=== PATIENT | male | born 1955 | race Caucasian/White ===

== ENCOUNTER → 2021-06-24 01:49 | Outpatient (CLI) | payer OTHER, SELFPAY ==
[2021-06-25 02:21] LABS: SARS-CoV-2 RNA PCR Negative
== END ==
PROVIDERS: PCP Internal Medicine; Visit Provider Internal Medicine
DX: R68.89 Other general symptoms and signs (principal); Z20.822 Contact with and (suspected) exposure to COVID-19
CPT/HCPCS: C9803; U0003; U0005

== ENCOUNTER → 2021-07-08 02:22 | Outpatient (CLI) | payer OTHER, SELFPAY ==
[2021-07-08 21:18] LABS: SARS-CoV-2 RNA PCR Negative
== END ==
PROVIDERS: PCP Internal Medicine; Visit Provider Internal Medicine
DX: R09.89 Other specified symptoms and signs involving the circulatory and respiratory systems (principal); Z20.822 Contact with and (suspected) exposure to COVID-19
CPT/HCPCS: C9803; U0003; U0005

== ENCOUNTER → 2021-07-20 02:00 | Outpatient (CLI) | payer OTHER, SELFPAY ==
[2021-07-20 19:02] LABS: SARS-CoV-2 RNA PCR Positive
== END ==
PROVIDERS: PCP Internal Medicine; Visit Provider Internal Medicine
DX: U07.1 COVID-19 (principal); R68.89 Other general symptoms and signs
CPT/HCPCS: C9803; U0003; U0005

== ENCOUNTER 2023-09-05 10:31 | Outpatient (CLI) | payer BC, SELFPAY ==
[2023-09-05 19:48] LABS: Alanine Aminotransferase 15 U/L (6-50); Albumin Level 4.2 g/dL (3.5-5.1); Alkaline Phosphatase 73 U/L (38-126); Anion Gap 6 mmol/L (8-16); Aspartate Amino Transferase 57 U/L (17-59); Bilirubin,Total 0.7 mg/dL (0.2-1.3); Blood Urea Nitrogen 25 mg/dL (9-20); Calcium 9.1 mg/dL (8.4-10.2); Carbon Dioxide 27 mmol/L (22-30); Chloride 103 mmol/L (98-107); Cholesterol 133 mg/dL (0-200); Estimated Glomerular Filt Rate > 60; Glucose 187 mg/dL (65-110); HDL Direct 39 mg/dL; Sodium 136 mmol/L (137-145); Triglycerides 75 mg/dL (<150)
[2023-09-05 19:59] LABS: LDL Cholesterol Direct 79 mg/dL
[2023-09-05 20:11] LABS: Hemoglobin A1C 12.2 % (<5.7)
[2023-09-05 20:14] LABS: Creatinine Urine 126.1 mg/dL
[2023-09-05 20:17] LABS: MALB Creatinine Ratio 8.4 mg/g (0-30); Microalbumin Urine Random 10.6 mg/L (0-16.7)
[2023-09-05 20:19] LABS: Prostate Specific Antigen 0.2 ng/mL (< OR = 4.0)
== END 2023-09-05 10:32 | disposition home or self-care (01) ==
LOC: ANHGOSHLAB 10:32
PROVIDERS: PCP Family Medicine; Visit Provider Family Medicine
DX: Z13.228 Encounter for screening for other metabolic disorders (principal); Z12.5 Encounter for screening for malignant neoplasm of prostate; E11.9 Type 2 diabetes mellitus without complications; Z13.220 Encounter for screening for lipoid disorders
CPT/HCPCS: 36415; 80053; 80061; 82043; 83036; 84153; G0103

== ENCOUNTER 2024-03-05 08:05 | Outpatient (CLI) | payer BC, SELFPAY ==
[2024-03-05 15:50] LABS: Hemoglobin A1C 9.3 % (<5.7)
== END 2024-03-05 08:06 | disposition home or self-care (01) ==
LOC: ANHGOSHLAB 08:06
PROVIDERS: PCP Family Medicine; Visit Provider Family Medicine
DX: E11.9 Type 2 diabetes mellitus without complications (principal)
CPT/HCPCS: 36415; 83036

== ENCOUNTER 2025-04-15 09:45 | Outpatient (CLI) | payer BC, SELFPAY ==
--- OUTSIDE RECORDS SUMMARY | 2025-04-15 11:01 | XMS_ITS | Clinical Summary ---
Author Organization [facility] Address [address] [place] [phone] Care Team Providers Care Associate Professor Of Biostatistics Name Role Phone Enoch Wing Provider Primary Care Provider Un available Allergies No known active allergies Medications cetirizine (ZyrTEC) 10 mg tablet Take 10 mg by mouth daily. Active simvastatin (ZOCOR) 20 mg tablet Take 20 mg by mouth daily with supper. Active olmesartan (BENICAR) 20 mg tablet Take 20 mg by mouth daily. Active omeprazole (PriLOSEC) 20 mg Capsule, Delayed Release(E.C.) Take 20 mg by mouth 1 time daily as needed. Active HYDROcodone-acet aminophen (HYCET) 7.5-325 mg/15 mL SolutionIndicati ons:Morbid obesity (CMS/HCC) Take 15 mL by mouth every 6 hours as needed for Pain, Severe. Max Daily Amount: 60 mL 300 mL 03/29/2019 11:46 AM CDT 03/28/2019 Active ondansetron (ZOFRAN ODT) 4 mg Tablet, Rapid DissolveIndicati ons:nausea Place 1 Tablet (4 mg) under tongue every 6 hours as needed for Nausea/Emes is. 10 Tablet 03/29/2019 11:46 AM CDT 03/28/2019 Active Active Problems Problem Noted Date Diagnosed Date Post-operative nausea and vomiting 03/29/2019 Post-op pain 03/29/2019 HTN (hypertension) 03/28/2019 GERD (gastroesophageal reflux disease) 9 Diabetes mellitus 03/28/2019 CLL (chronic lymphocytic leukemia) 01/25/2019 Immunizations Immunization Administration Dates Next Due INFLUENZA VACCINE QUADRIVALENT 6 MOS UP IM 03/30 Influenza Seasonal Unspecified Formulation IM Social History Tobacco Use Types Packs/Day Years Used Date Smoking Tobacco: Never Smokeless Tobacco: Never Alcohol Use Standard Drinks/Week Comments Yes 0 (1 standard drink = 0.6 oz pur e alcohol) Sex and Gender Information Value Date Recorded Sex Assigned at Not on file Legal Sex Male 10:37 AM CDT Gender Identity Not on file Sexual Orientation Not on file Last Filed Vital Signs Vital Sign Reading Time Taken Comments Blood Pressure 157/69 03/29/2019 12:00 PM CDT Pulse 64 03/29/2019 12:00 PM CDT Temperature 37 C (98.6 F) 03/29/2019 12:00 PM CDT Respiratory Rate 20 03/29/2019 12:0 0 PM CDT Oxygen Saturation 100% 03/29/2019 12: 00 PM CDT Inhaled Oxygen Concentration - - Weight 143.9 kg (317 lb 3.2 oz) 03/29/2019 4:50 AM CDT Height 175.3 cm (5' 9) 03/28/2019 10:0 0 AM CDT Body Mass Index 46.84 03/28/2019 10:00 AM CDT Plan of Treatment Health Maintenance Due Date Last Done Comments DIABETES ANNUAL FOOT EXAM 1974 DIABETES ANNUAL RETINAL EXAM 1974 DIABETES MICROALBUMIN ANNUAL SCREEN 1974 LDL CHOLESTEROL ANNUAL 1974 DTAP/TDAP/TD VACCINES (1 - Tdap) 12/01/1975 PNEUMOCOCCAL VACCINE 50+ YEA RS (1 of 2 - PCV) 12/01/1975 ZOSTER VACCINE (1 of 2) 12/01/1975 FIT-DNA Q 3 years 2001 FIT/FOBT Q 1 year 2001 Flex Sig/CT Colonography Q 5 years 2001 DIABETES HBA1C Q 6 MONTHS 09/28/2019 03/29/2019 INFLUENZA VACCINE (#1) 2025 9, 03/30/2018, 03/27/2018 COLORECTAL SCREENING 10/27/2028 10/27/2018, 10/27/2018, 10/27/2018 Colorectal Cancer Screening 10/27/2028 RSV VACCINE (60+ or ) (1 - 1-dose 75+ series) 12/01/2031 Medical Devices Implanted Type Area Final Inspector Device Identifier Shelf Expiration Date Model / Serial / Lot Seamguard Endogia 60 Blck [id number] - [id number] Implanted:Qty : 2 on 03/28/2019 by Familia Tomas MD at [facility] Biological N/A: Stom[employer] 11/24/2021 [id number] / / [id number] Seamguard Endogia 60 Prpl [id number] - [id number] Implanted:Qty : 3 on 03/28/2019 by Familia Tomas MD at [facility] Biological N/A: Stomach [employer] 12/24/2021 [id number] / / [id number] Description:IMPLANT #3- LOT# [id number] EXP. 12/24/21 Procedures Procedure Name Priority Date/Time Associated Diagnosis Comments HEMOGLOBIN A1C Routine 03/29/2019 4:49 AM CDT COLONOSCOPY REPORT 10/27/2018 8: 54 AM CDT from Last 3 Months or Most Recently Relevant to Health Maintenance Results * (ABNORMAL) HEMOGLOBIN A1C (03/29/2019 4:49 AM CDT) HEMOGLOBIN A1C 7.2(H) <=5.6 % 03/29/2019 5:45 AM CDT [facility] EST. AVG GLUCOSE, A1C 160 mg/dL 03/29/2019 5:45 AM CDT [facility] Blood Venipuncture / Unknown 03/29/2019 4:49 AM CDT 03/29/2019 5:27 AM CDT Narrative [facility] - 03/29/2019 5:45 AM CDT HGB A1C INTERPRETATION NORMAL: <5.7% PRE-DIABETES: 5.7 - 6.4% DIABETES: 6.5% OR GREATER Familia Tomas MD CHEMISTRY ORDERABLES Final Resul t [facility] [employer] [facility] CLIA # [id number] [address] [place] [address] * COLONOSCOPY REPORT (10/27/2018 8:54 AM CDT) Narrative Procedure Note Familia Tomas MD - 10/27/2018 8:54 AM CDT [facility] Endoscopy Patient Name: Jarrell Bernal Procedure Date: 10/27/2018 Date of : 1955 Admit Type: Outpatient Attending MD: Familia Tomas MD Procedure: Colonoscopy Indications: Screening for malignant neoplasm in the colon Providers: Familia Tomas MD Referring MD: Complications: No immediate complications. Procedure: Informed consent was obtained for the procedure, including moderate sedation after risks were discussed. Based on the pre-procedure assessment, including review of the patient?s medical history, medications, allergies, and review of systems, the patient was deemed to be an appropriate candidate for sedation. A timeout was performed. Continuous ECG monitoring, pulse oximetry, blood pressure monitoring, and direct observation were performed. The Colonoscope was introduced through the anus and advanced to the cecum, identified by appendiceal orifice and ileocecal valve. The colonoscopy was performed without difficulty. The patient tolerated the procedure well. The quality of the bowel preparation was adequate. Estimated Blood Loss: Estimated blood loss: none. Findings: A 5 mm polyp was found in the mid descending colon. The polyp was pedunculated. The polyp was removed with a jumbo cold forceps. Resection and retrieval were complete. The exam was otherwise without abnormality. Impression: - One 5 mm polyp in the mid descending colon, removed with a jumbo cold forceps. Resected and retrieved. - The examination was otherwise normal. Recommendation: - Await pathology results. - Repeat colonoscopy in 10 years. Procedure Code(s): --- Professional --- 99374, Colonoscopy, flexible; with biopsy, single or multiple Diagnosis Code(s): --- Professional --- Z12.11, Encounter for screening for malignant neoplasm of colon D12.4, Benign neoplasm of descending colon CPT copyright 2016 [employer]. All rights reserved. The codes documented in this report are preliminary and upon athletic gear custodian review may be revised to meet current compliance requirements. Familia Tomas MD 10/27/2018 8:54:08 AM Number of Addenda: [address] [place] [address] Familia Tomas MD GI PROCEDURE ORDERABLES Final Re sult from Last 3 Months or Most Recently Relevant to Health Maintenance Insurance BCBS BLUE ACCESS/TRUE BLUE PPO RX [employer] Commercial Advance Directives For more information, please contact: [phone] * Full Code (Latest Code Status on File) Date Activated Date Inactivated Comments 03/28/2019 10:04 AM 03/29/2019 3:57 PM * Full Code Date Activated Date Inactivated Comments 03/28/2019 6:56 AM 03/28/2019 10:04 AM * Full Code Date Activated Date Inactivated Comments 03/28/2019 5:48 AM 03/28/2019 6:56 AM * Full Code Date Activated Date Inactivated Comments 10/27/2018 5:58 AM 10/27/2018 10:57 AM Care Teams Associate Professor Of Biostatistics Relationship Specialty Start Date End Date Maciej External Provider PCP - General 09/25/18
--- OUTSIDE RECORDS SUMMARY | 2025-04-15 11:01 | XMS_ITS | Encounter Summary ---
Author Organization [facility] Address [address] [place] [address] Care Team Providers Care Medical Surgical Tech Name Role Phone Dwaynefdorothy, External Provider Primary Care Provider Un available Encounter Details Date Type Department Care Team (Late st Contact Info) Description 01/05/2019 Abstract [facility] Operating Room [address] [phone] [place] [address] [facility] [address] [place] [phone] Social History Tobacco Use Types Packs/Day Years Used Date Smoking Tobacco: Never Smokeless Tobacco: Never Alcohol Use Standard Drinks/Week Comments Yes 0 (1 standard drink = 0.6 oz pur e alcohol) Sex and Gender Information Value Date Recorded Sex Assigned at Not on file Legal Sex Male 10:37 AM CDT Gender Identity Not on file Sexual Orientation Not on file documented as of this encounter Plan of Treatment Not on file documented as of this encounter Visit Diagnoses Not on filedocumented in this encounter Care Teams Medical Surgical Tech Relationship Specialty Start Date End Date Maciej External Provider PCP - General 09/25/18 documented as of this encounter
--- OUTSIDE RECORDS SUMMARY | 2025-04-15 11:01 | XMS_ITS | Clinical Summary ---
Author Organization [facility] Address [address] [place] [address] Care Team Providers Care Road Machine Operator Name Role Phone Humberto Lea MD Primary Care Provider [phone] Source Comments [facility],non-owned Affiliates and Associated Physician Practices is amultiple site organization consisting of ambulatory clinics and hospital sitesin [place], [place], [place] and [place]. This disclosure is being madepursuant to the Care Everywhere program and may not contain all information available regarding this patient. Last updated 18.[facility] Immunizations Immunization Administration Dates Next Due INFLUENZA VACCINE, QUADR. 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 Gender Identity Not on file Sexual Orientation Not on file Plan of Treatment Health Maintenance Due Date Last Done Comments COLOGUARD (AGES 45-75) - COL ON CA SCREENING 1955 COLON MONITORING 1956 COLONOSCOPY - COLON CA SCREENING 1956 CT COLONOGRAPHY - COLON CA SCREENING 1955 Colorectal Cancer Screening 1956 FIT - COLON CA SCREENING 1956 FLEX SIG - COLON CA SCREENING 1956 LIPID TESTING 1955 HEPATITIS C SCREENING 11/26/1974 DTAP/TDAP/TD VACCINES (1 - Tdap) 12/01/1975 PNEUMOCOCCAL VACCINE 50+ (1 of 1 - PCV) 2006 ZOSTER VACCINE (1 of 2) 2006 DEPRESSION SCREENING 06/27/2024 COVID-19 VACCINE (1 - 2023-2 5 season) 2025 INFLUENZA VACCINE (#1) 2025 9, 03/30/2018, 03/27/2018 Respiratory Syncytial Virus (RSV) Vaccine Pt: or over 60 yrs (1 - 1-dose 75+ series) 12/01/2031 HEPATITIS B VACCINE Aged Out No longe r eligible based on patient's age to complete this topic HIB VACCINE Aged Out No longer eligi ble based on patient's age to complete this topic HPV VACCINE Aged Out No longer eligi ble based on patient's age to complete this topic MENINGOCOCCAL (Group B) VACCINE SHARED DECISION-MAKING Aged Out No longer eligible based on patient's age to complete this topic MENINGOCOCCAL GROUPS A/C/Y/W VACCINE Aged Out No longer eligible b ased on patient's age to complete this topic Insurance [place] [address] [place] [address] Machine Operator Relationship Specialty Start Date End Date Humberto Lea MD [address] [place] [address] PCP - General 09/29/09
--- OUTSIDE RECORDS SUMMARY | 2025-04-15 11:01 | XMS_ITS ---
Author Organization [facility] [address] Address [address] [place] [phone] Care Team Providers Care Card Runner Name Role Phone Maciej, Enoch Provider Primary Care Provider Un available Active Problems Problem Noted Date Diagnosed Date Post-operative nausea and vomiting 03/29/2019 Post-op pain 03/29/2019 HTN (hypertension) 03/28/2019 GERD (gastroesophageal reflux disease) 9 Diabetes mellitus 03/28/2019 CLL (chronic lymphocytic leukemia) 01/25/2019 Current Treatment and Therapy Plans No current plan information found. Past Treatment and Therapy Plans No past plan information found. Lifetime Dose Tracking * Chemical Lifetime Dose Automatic Entry Manual Entr y Effective Dose 22.6 mSv 22.6 mSv 0 mSv Total DLP 2,471 DLP 2,471 DLP 0 DLP CTDIvol Max 43.1 mGy 43.1 mGy 0 mGy CTDIvol Min 32.3 mGy 32.3 mGy 0 mGy
--- OUTSIDE RECORDS SUMMARY | 2025-04-15 11:02 | XMS_ITS | Clinical Summary ---
Author Organization [facility] Address [address] [place] [address] Care Team Providers Care Fire Extinguisher Repairer Name Role Phone Miscellaneous, Not In File Unavailable Unava Rodríguez Lazcano DO Primary Care Provider [phone] Allergies No known active allergies Medications cetirizine (ZyrTEC) 10 mg tablet Take 1 tablet (10 mg total) by mouth daily Active TRULICITY 0.75 mg/0.5 mL pen injector once a week 2 9 Active pioglitazone (ACTOS) 45 mg tablet Take 1 tablet (45 mg total) by mouth Active simvastatin (ZOCOR) 20 mg tablet Take 1 tablet (20 mg total) by mouth Active CONTOUR NEXT TEST STRIPS strip TEST TID 3 9 Active omeprazole (PriLOSEC) 20 mg capsule Take 1 capsule (20 mg total) by mouth daily as needed Active pen needle, diabetic 32 gauge x needle U ONCE QD UTD 9 Active insulin syringe-needle U-100 1 mL 31 gauge x 16 syringe USE 1 SYRINGE TO INJECT 6 UNITS TID 9 Active olmesartan (BENICAR) 20 mg tablet 4 9 Active insulin NPH (HumuLIN N, NovoLIN N) 100 unit/mL injection Inject under the skin 2 (two) times a day Active insulin regular (HumuLIN R, NovoLIN R) 100 unit/mL injection Inject under the skin 10u TID before meals Active HYDROcodone-acetam inophen (HYCET) solution 7.5-325 mg/15 mL Take 15 mL by mouth every 6 (six) hours as needed 9 Active ondansetron ODT (ZOFRAN-ODT) [address] 1 tablet (4 mg total) under the tongue every 6 (six) hours as needed 9 Active FreeStyle Nayely 14 Day Sensor kit CHANGE EVERY 14 DAYS. 3 Active olmesartan-hydroch lorothiazide (BENICAR HCT) 40-12.5 mg per tablet 3 Active Trulicity 1.5 mg/0.5 mL pen injector ADMINISTER 1.5 MG UNDER THE SKIN WEEKLY 3 Active Easy Touch 31 gauge x 1/4 needle as directed 3 Active predniSONE (DELTASONE) 10 mg tablet Take 4 tabs days 1-3, take 3 tabs day 4-6, take 2 tabs day 7-9, take 1 tab days 10-14 32 tablet 3 Active triamcinolone (KENALOG) 0.1 % cream Apply to affected area 1-2 times daily as needed. Avoid face and groin. 30 g 3 Active Active Problems Problem Noted Date Diagnosed Date Diabetes mellitus 03/28/2019 GERD (gastroesophageal reflux disease) 9 HTN (hypertension) 03/28/2019 Thrombocythemia 02/15/2019 Lymphocytosis 02/15/2019 Chronic lymphoid leukemia, 01/25/2019 Cervicalgia 07/25/2012 Immunizations Immunization Administration Dates Next Due Influenza, Quad, Adjuvantated, Intramuscular Influenza, Quadrivalent, Cindi l Culture-based MDCK, Preservative Free, Antibiotic Free, Intramuscular 03/18/2020 Influenza, Quadrivalent, Split, Intramuscular Influenza, Quadrivalent, Spl it, Preservative Free, Intramuscular 05/10/2019 Influenza, Trivalent, IM (MDV) 03/27/2018 Pneumococcal Conjugate Pcv20 05/29/2022 Surgical History Surgery Date Site/Laterality Comments ARM INCISION Arm Incision - reattachment of left arm bicep in 1993 (Added by TW Conv) Medical History Medical History Date Comments Personal history of other en docrine, nutritional and metabolic disease History of diabetes mellitus - (Added by TW Conv) Personal history of other di seases of the circulatory system History of hypertension - (A dded by JASVIR Conv) WILIAM on CPAP GERD (gastroesophageal reflux disease) Family History Medical History Relation Name Comments No Known Problems Brother complications of pneaumonia at 94 Father Lymphoma Father's Sister CHF Mother pneaumonia Mother stage 4 renal Mother Hypertension Other 1 Hypertension - (Added by TW Conv) Stroke Other 2 Stroke Syndrome - (Added by TW Conv) Relation Name Status Comments Brother Alive Father Father's Sister Mother Alive Other 1 Other 2 Sister Alive Social History Tobacco Use Types Packs/Day Years Used Date Smoking Tobacco: Never Smokeless Tobacco: Never Tobacco Cessation:Counseling Given: Not Answered Alcohol Use Standard Drinks/Week Comments Yes 2 (1 standard drink = 0.6 oz pur e alcohol) Sex and Gender Information Value Date Recorded Sex Assigned at Not on file 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 Gender Identity Not on file Sexual Orientation Not on file Obstetrics History Last Filed Vital Signs Vital Sign Reading Time Taken Comments Blood Pressure 128/64 02/14/2023 4:50 PM CDT Pulse 75 02/14/2023 4:50 PM CDT Temperature 36.9 C (98.5 F) 02/14/2023 4:50 PM CDT Respiratory Rate 16 02/14/2023 4:50 PM CDT Oxygen Saturation 98% 02/14/2023 4:50 PM CDT Inhaled Oxygen Concentration - - Weight 122.5 kg (270 lb) 02/14/2023 4:50 PM CDT Height 177.8 cm (5' 10) 02/14/2023 4:50 PM CDT Body Mass Index 38.74 02/14/2023 4:50 PM CDT Plan of Treatment Health Maintenance Due Date Last Done Comments Albumin Creatinine Ratio, Urine 1955 Colon Cancer Screening-Colonoscopy 1956 Depression Screening 1956 Fall Risk Assessment 1956 Hepatitis C Screening 1956 Prostate Cancer Screening-PSA 1956 eGFR 1955 Dilated Eye Exam 1956 Foot Exam 1956 Lipid Panel 1956 DTaP/Tdap/Td Vaccine (1 - Tdap) 12/01/1967 Hepatitis B Screening 1974 Zoster Vaccine (1 of 2) 2006 Hemoglobin A1C 09/28/2019 03/29/2019 Abdominal Aortic Aneurysm (A AA) Screen 2021 Well Visit 65+ 2021 Covid-19 Vaccine (2024-2 6 season) 2025 05/26/2022, 12/27/2021, 04/19/2021, Additional history exists Influenza Vaccine (#1) 2025 , 03/18/2020, 05/10/2019, Additional history exists Pneumococcal vaccine 65+ Completed 05/29/2022 [place] Care Teams Fire Extinguisher Repairer Relationship Specialty Start Date End Date Rodríguez Coleman DO PCP - General Family Medicine 07/11/22 Miscellaneous, Not In File Surgeon 02/15/19
--- OUTSIDE RECORDS SUMMARY | 2025-04-15 11:02 | XMS_ITS | Encounter Summary ---
Author Organization [facility] Address [address] [place] [address] Care Team Providers Care Ambulatory Services Representative Name Role Phone Dwaynefdorothy, External Provider Primary Care Provider Un available Encounter Details Date Type Department Care Team (Late st Contact Info) Description 03/20/2019 Abstract [facility] Operating Room [address] [phone] [place] [address] [facility] [address] [place] [phone] Social History Tobacco Use Types Packs/Day Years [...] on filedocumented in this encounter Care Teams Ambulatory Services Representative Relationship Specialty Start Date End Date Maciej External Provider PCP - General 09/25/18 documented as of this encounter
[2025-04-15 13:04] LABS: Hematocrit 44.7 % (42.0-52.0); Hemoglobin 14.5 g/dL (14.0-18.0); Immature Granulocyte Percent A 0.3 % (0-0.5); Immature Platelet Fraction Pct 15.6 % (0.9-11.2); Lymphocytes Absolute Auto 4.08 K/mm3 (0.9-3.2); Mean Corpuscular HGB Conc 32.4 g/dl (32-36); Mean Corpuscular Hemoglobin 30.5 pg (26-34); Mean Corpuscular Volume 94.1 fl (80-100); Nucleated Red Blood Cells Absolute Auto 0.000 K/mm3 (0.0-0.012); Nucleated Red Blood Cells Perc 0.0 % (0.0-0.2); Platelet Count Result 121 k/mm3 (150-375); Red Blood Count 4.75 M/mm3 (4.6-6.20); White Blood Count 9.8 K/mm3 (4.5-10.0)
[2025-04-15 13:07] LABS: Alanine Aminotransferase 15 U/L (6-50); Albumin Level 4.2 g/dL (3.5-5.1); Alkaline Phosphatase 68 U/L (38-126); Anion Gap 7 mmol/L (4-12); Aspartate Amino Transferase 65 U/L (17-59); Bilirubin,Total 0.9 mg/dL (0.2-1.3); Blood Urea Nitrogen 26 mg/dL (9-20); Calcium 8.7 mg/dL (8.4-10.2); Carbon Dioxide 29 mmol/L (22-30); Chloride 101 mmol/L (98-107); Estimated Glomerular Filt Rate > 60; Glucose 140 mg/dL (65-110); Potassium 4.0 mmol/L (3.4-5.0); Sodium 137 mmol/L (137-145); Total Protein 7.5 g/dL (6.3-8.2)
[2025-04-15 13:36] LABS: MALB Creatinine Ratio 22.2 mg/g (0-30)
[2025-04-15 14:14] LABS: Hemoglobin A1C 8.2 % (<5.7)
== END 2025-04-15 09:46 | disposition home or self-care (01) ==
LOC: ANHGOSHLAB 09:46
PROVIDERS: PCP Nurse Practitioner; Visit Provider Nurse Practitioner
DX: E11.9 Type 2 diabetes mellitus without complications (principal); Z79.4 Long term (current) use of insulin; I10 Essential (primary) hypertension
CPT/HCPCS: 36415; 80053; 82043; 83036; 85025; 85055